=== PATIENT | male | born 1965 | race African-American/Black ===

== ENCOUNTER 2017-07-25 12:06 | Emergency (ER) | payer OTHER ==
[~2017-07-25] VITALS: Ht 195.6 cm; Wt 69.1 kg
[2017-07-25] MEDS ORDERED: NORVASC10 MG PO (13:28)
[2017-07-25] MEDS ORDERED: HYDROCHLOROTHIA25 MG PO (13:28)
[2017-07-25 13:53] VITALS: BP 153/109
== END 2017-07-25 14:00 | disposition home or self-care (01) ==
LOC: EME 12:06
DX: I10 Essential (primary) hypertension (principal); R51 Headache; Z76.0 Encounter for issue of repeat prescription; R20.0 Anesthesia of skin; R20.2 Paresthesia of skin; F17.200 Nicotine dependence, unspecified, uncomplicated
CPT/HCPCS: 99281; 99284